=== PATIENT | female | born 1960 | race Caucasian/White ===

== ENCOUNTER → 2016-11-05 | Outpatient (CLI) | payer MEDICARE, OTHER ==
--- NOTE | 2016-11-07 09:27 | MM ---
Reason for exam: follow-up at short interval from prior study. Last mammogram was performed 7 months ago. History: Patient is postmenopausal. Family history of premenopausal breast cancer in mother. Benign MG pre op needle loc RT of the right breast, April 26, 2016. MG discontinued stereo core RT of the right breast, April 19, 2016. Benign excisional biopsy of the right breast. Physical Findings: Nurse did not find any significant physical abnormalities on exam. MG Diagnostic Mammo w CAD VICK Bilateral CC and MLO view(s) were taken. Prior study comparison: April 03, 2016, right breast MG work up mamm w CAD RT. March 28, 2016, bilateral MG screening mammo w CAD. April 21, 2014, bilateral MG screening mammo w CAD. The breast tissue is heterogeneously dense. This may lower the sensitivity of mammography. Post surgical changes in the right breast. No significant new findings when compared with previous films. These results were verbally communicated with the patient and result sheet given to the patient on 11/05/16. ASSESSMENT: Benign, BI-RAD 2 RECOMMENDATION: Routine screening mammogram of both breasts in 1 year.
== END | disposition home or self-care (01) ==
LOC: RADMAMWWP 13:37
PROVIDERS: ATTEND Surgery
DX: R92.8 Other abnormal and inconclusive findings on diagnostic imaging of breast (principal)

== ENCOUNTER → 2017-05-30 | Outpatient (CLI) | payer MEDICARE, OTHER ==
--- NOTE | 2017-05-31 06:24 | MR ---
MRI CERVICAL SPINE: CLINICAL HISTORY: Chronic cervical Neck pain per order. Headache with neck pain and spasms since 2008 causing pain or weakness into both arms per patient. TECHNIQUE: Multiplanar, multisequence imaging of the cervical spine is performed without with IV cont rast. COMPARISON: Prior MRI cervical spine November 04, 2012 FINDINGS: Sagittal images of the cervical spine show the craniocervical junction to appear within nor mal limits. The cervical and upper thoracic spinal cord is normal in course, caliber, and signal. Th ere is stable alignment with slight grade 1 retrolisthesis of C4 on C5 and C6 on C7. There is persist ent mild disc space narrowing C5-C6 and moderate disc space narrowing C6-C7 level. Small posterior di sc herniation C4-C5 through C6-C7 level are redemonstrated on sagittal images. The vertebral body he ights are normal. The bone marrow signal intensity is within normal limits. Mild multilevel anterior spurring mid to lower cervical spine is redemonstrated. Axial images show the C2-C3 and C3-C4 levels to remain within normal limits. Axial images at C4-C5 level show right paracentral disc protrusion effacing anterior thecal sac, with mild right-sided neural foraminal narrowing on axial image 30, left-sided neural foramen is patent. No significant change from prior. Axial images at C5-C6 level show more central disc protrusion effacing anterior thecal sac, bilateral neural foramina are patent. No significant change from prior. Axial images at C6-C7 level show right paracentral disc protrusion effacing anterolateral thecal sac, there is some marginal spurring causing moderate left-sided neural foraminal narrowing. Right-sided neural foramen is patent. No significant change from prior study is seen. Axial images at C7-T1 level are felt within normal limits. IMPRESSION: Multilevel degenerative changes in cervical spine as detailed above. No significant reyes e from prior MRI in 2012.
== END | disposition home or self-care (01) ==
LOC: RADMRIMAIN 18:39
PROVIDERS: ATTEND Internal Medicine
DX: M48.02 Spinal stenosis, cervical region (principal); M99.71 Connective tissue and disc stenosis of intervertebral foramina of cervical region; M50.221 Other cervical disc displacement at C4-C5 level; M47.812 Spondylosis without myelopathy or radiculopathy, cervical region
CPT/HCPCS: 72141

== ENCOUNTER → 2017-12-17 | Outpatient (CLI) | payer MEDICARE, OTHER ==
--- NOTE | 2017-12-24 10:28 | MM ---
Reason for exam: screening (asymptomatic). Last mammogram was performed 1 year and 1 month ago. History: Patient is postmenopausal. Family history of premenopausal breast cancer in mother at age 45. Benign MG pre op needle loc RT of the right breast, April 26, 2016. MG discontinued stereo core RT of the right breast, April 19, 2016. Benign excisional biopsy of the right breast. Physical Findings: A clinical breast exam by your physician is recommended on an annual basis and results should be correlated with mammographic findings. MG 3D Screening Mammo W/Cad Bilateral CC and MLO view(s) were taken. Prior study comparison: November 05, 2016, bilateral MG diagnostic mammo w CAD VICK. April 03, 2016, right breast MG work up mamm w CAD RT. The breast tissue is heterogeneously dense. This may lower the sensitivity of mammography. Finding: There are typically benign vascular calcifications in the upper quadrant of the left breast. There is no discrete abnormality. ASSESSMENT: Benign, BI-RAD 2 RECOMMENDATION: Routine screening mammogram of both breasts in 1 year.
== END | disposition home or self-care (01) ==
LOC: RADMAMWWP 11:32
PROVIDERS: ATTEND Internal Medicine
DX: Z12.31 Encounter for screening mammogram for malignant neoplasm of breast (principal)
CPT/HCPCS: 77063; 77067

== ENCOUNTER → 2019-04-21 | Outpatient (CLI) | payer MEDICARE, OTHER ==
--- NOTE | 2019-04-21 11:03 | MM ---
Reason for exam: screening (asymptomatic). Last mammogram was performed 1 year and 4 months ago. History: Patient is postmenopausal. Family history of premenopausal breast cancer in mother at age 45. Benign MG pre op needle loc RT of the right breast, April 26, 2016. MG discontinued stereo core RT of the right breast, April 19, 2016. Benign excisional biopsy of the right breast. Physical Findings: A clinical breast exam by your physician is recommended on an annual basis and results should be correlated with mammographic findings. MG 3D Screening Mammo W/Cad Bilateral CC and MLO view(s) were taken. Prior study comparison: December 17, 2017, bilateral MG 3d screening mammo w/cad. November 05, 2016, bilateral MG diagnostic mammo w CAD VICK. The breast tissue is heterogeneously dense. This may lower the sensitivity of mammography. Finding #1: Subtle architectural distortion in the posterior position of the right breast consistent with known excision changes. Finding #2: There are typically benign vascular calcifications in the left breast. There is no discrete abnormality. ASSESSMENT: Benign, BI-RAD 2 RECOMMENDATION: Routine screening mammogram of both breasts in 1 year. Manage on a clinical basis with regard to right pain.
== END | disposition home or self-care (01) ==
LOC: RADMAMWWP 09:19
PROVIDERS: ATTEND Internal Medicine
DX: Z12.31 Encounter for screening mammogram for malignant neoplasm of breast (principal)
CPT/HCPCS: 77063; 77067

== ENCOUNTER → 2019-10-20 | Outpatient (CLI) | payer MEDICARE, OTHER ==
[2019-10-20 15:04] LABS: Basophils # (A) 0.1 k/uL (0-0.2); Basophils % (A) 1 %; Eosinophils # (A) 0.4 k/uL (0-0.7); Eosinophils % (A) 5 %; HCT 42.8 % (34.0-46.0); Hypochromasia Slight; Lymphocytes # (A) 2.7 k/uL (1.0-4.8); Lymphocytes % (A) 32 %; MCH 27.5 pg (25.0-35.0); MCHC 30.4 g/dL (31.0-37.0); MCV 90.6 fL (80.0-100.0); Mean Platelet Volume 7.5; Monocytes # (A) 0.5 k/uL (0-1.0); Monocytes % (A) 5 %; Neutrophils # (A) 4.6 k/uL (1.3-7.7); Neutrophils % (A) 55 %; Platelet Count 229 k/uL (150-450); RBC 4.73 m/uL (3.80-5.40); RDW 12.5 % (11.5-15.5); WBC 8.4 k/uL (3.8-10.6)
[2019-10-20 15:11] LABS: Appearance,Urine Clear (Clear); Bilirubin,Urine Negative (Negative); Blood,Urine Negative (Negative); Color,Urine Light Yellow; Glucose,Urine (UA) Negative (Negative); Ketones,Urine Negative (Negative); Leukocyte Esterase,Urine Moderate (Negative); Mucus,Urine Rare /hpf; Nitrite,Urine Negative (Negative); PH, Urine 5.5 (5.0-8.0); Protein,Urine Negative (Negative); RBC,Urine 1 /hpf (0-5); Specific Gravity,Urine 1.009 (1.001-1.035); Squamous Epithelial Cell,Urine 1 /hpf (0-4); Urobilinogen,Urine <2.0 mg/dL (<2.0); WBC,Urine 1 /hpf (0-5)
[2019-10-21 03:08] LABS: African American GFR (CKD) 108.4 (60.0-200.0); Anion Gap 9.8 mmol/L (4.00-12.00); BUN/Creat Ratio 15.71 Ratio (12.00-20.00); Calcium 9.4 mg/dL (8.7-10.3); Carbon Dioxide 27.2 mmol/L (21.6-31.8); Non-African American GFR(CKD) 93.5 (60.0-200.0); Potassium 3.7 mmol/L (3.5-5.5)
== END | disposition home or self-care (01) ==
LOC: LABWHC1 14:28
PROVIDERS: ATTEND Orthopaedic Surgery
DX: Z01.818 Encounter for other preprocedural examination (principal); Z01.812 Encounter for preprocedural laboratory examination; M17.11 Unilateral primary osteoarthritis, right knee
CPT/HCPCS: 36415; 80048; 81001; 85025; 87070; 93005

== ENCOUNTER 2019-10-26 11:11 | Day surgery (SDC) | payer MEDICARE, OTHER ==
[2019-10-22 14:58] VITALS: BMI 25.3
--- NOTE | 2019-10-25 15:39 | HP ---
HISTORY AND PHYSICAL Surgery is 10/26/2019 Helen Mahmood is a 59-year-old patient seen with symptomatic right knee osteoarthritis. We discussed options. She elected to proceed with right total knee arthroplasty. Consent regarding the procedure was obtained. Medical clearance was provided by Dr. Graham. PAST MEDICAL HISTORY: Hypertension, chronic opioid use. PAST SURGICAL HISTORY: Right knee arthroscopy. MEDICATIONS: Lisinopril, Saxis, Xanax, ibuprofen. ALLERGIES: None. SOCIAL HISTORY: She denies current tobacco use. PHYSICAL EXAMINATION: Evaluation right knee: Range of motion is -3/4-110. There is a mild effusion present. Tenderness medial joint line. Crepitus along the medial patellofemoral compartments range of motion. Pain with patellofemoral compression. Ligaments stable. Hip rotation without pain. Distal neurovascular exam is intact. RADIOGRAPHS: Radiographs of the right knee reveal severe osteoarthritic changes. IMPRESSION: 1. Right knee osteoarthritis. 2. Hypertension. 3. Chronic opioid use. PLAN: Right total knee arthroplasty. MMODL / IJN: [id number] /
[~2019-10-26 11:11] MED LIST: ACETAMINOPHEN TAB 500 MG TAB PO ONE; DEXAMETHASONE SOD PHOSPHATE 10 MG/ML 1 ML VIAL IV ONE; HYDROmorphone 0.5 MG/0.5 ML SYRINGE IVP PRN; LACTATED RINGERS 1,000 ML IV SCH; MELOXICAM 7.5 MG TAB PO ONE; MIDAZOLAM 2 MG/2 ML VIAL IV PRN; ONDANSETRON 4 MG/2 ML VIAL IVP ONE; ROPIVACAINE 246.25 MG, EPINEPHrine 0.5 MG, KETOROLAC 30 MG, cloNIDine HCL/PF 80 MCG, WA... MISCELLANE ONE; TRANEXAMIC ACID 1,000 MG in SODIUM CHLORIDE 0.9% 100 ML IVPB ONE
[2019-10-26] MEDS ORDERED: ACETAMINOPHEN TAB 500 MG TAB ONE (11:22)
[2019-10-26] MEDS ORDERED: ROPIVACAINE 0.2%-NS ON-Q PUMP 1,090 MG, EMPTY PAIN BALL 1 EACH MISCELLANE PRN (12:24)
--- NOTE | 2019-10-26 12:26 | P.ANPRN ---
Procedure Note - Anesthesia - Nerve Block Performed Right Adductor Canal Infusion Time Out Performed: Yes Date of Procedure: 10/26/19 Procedure Start Time: 11:59 Procedure Stop Time: 12:14 Location of Patient: PreOp Indication: Acute Post-Operative Pain, Requested by Surgeon Sedation Type: Sedate with meaningful contact maintained Preparation: Sterile Prep, Sterile Dressing Position: Supine Catheter: Indwelling Needle Types: Pajunk Needle Gauge: 21 Ultrasound used to visualize needle placement: Yes Ultrasound used to observe medication spread: Yes Resistance on Injection: Normal Image Stored and Saved: Yes Events: Uneventful and Well Tolerated (ropi .5% 20cc plus dexamethasone 4mg)
[2019-10-26] MEDS ORDERED: fentaNYL (PF) 50 MCG/ML 2 ML AMP ONE (12:40)
[2019-10-26] MEDS ORDERED: PROPOFOL 10 MG/ML 20 ML VIAL IV ONE (12:40)
[2019-10-26] MEDS ORDERED: MIDAZOLAM 2 MG/2 ML VIAL ONE (12:40)
[2019-10-26] MEDS ORDERED: TRANEXAMIC ACID 1,000 MG/10 ML VIAL ONE (12:40)
[2019-10-26] MEDS ORDERED: SODIUM CHLORIDE 0.9% 100 ML BAG ONE (12:40)
[2019-10-26] MEDS ORDERED: ePHEDrine SULFATE/0.9% NACL/PF 50 MG/5 ML SYRINGE IV ONE (12:40)
[2019-10-26] MEDS ORDERED: WATER FOR INJECTION, STERILE 10 ML VIAL IV ONE (12:40)
[2019-10-26 12:42] LABS: Prothrombin Time 10.6 sec (9.0-12.0)
[2019-10-26] MEDS ORDERED: ceFAZolin 3,000 MG in SODIUM CHLORIDE 0.9% IRRIGATIO 3,000 ML IRRIGATION ONE (13:15)
[2019-10-26] MEDS ORDERED: HYDROmorphone 1 MG/ML 1 ML SYRINGE IVP PRN (14:20)
[2019-10-26] MEDS ORDERED: ONDANSETRON 4 MG/2 ML VIAL IVP PRN (14:20)
[2019-10-26] MEDS ORDERED: NALOXONE 0.4 MG/ML 1 ML VIAL IV PRN (14:20)
[2019-10-26] MEDS ORDERED: HYDROmorphone 0.5 MG/0.5 ML SYRINGE IVP PRN ×2 (14:20)
[2019-10-26] MEDS ORDERED: HYDROcodone/APAP 7.5-325MG 1 EACH TAB PO PRN (14:20)
[2019-10-26] MEDS ORDERED: HYDROcodone/APAP 5-325MG 1 EACH TAB PO PRN (14:20)
--- NOTE | 2019-10-26 14:20 | P.OP ---
Date of Procedure: 10/26/19 Preoperative Diagnosis: Right knee osteoarthritis Postoperative Diagnosis: Right knee osteoarthritis Procedure(s) Performed: Right total knee arthroplasty Implants: 1. Depuy attune size 4 right cruciate-retaining cemented femur 2. Depuy attune size 3 fixed bearing cemented tibial baseplate 3. Depuy attune size 4 fixed bearing cruciate retaining a millimeter polyethylene tibial insert 4. Depuy attune 35 mm all polyethylene cemented patella Anesthesia: regional (Adductor canal catheter), local, spinal Surgeon: Salomon Hardin Adjunct Nursing Faculty #1: Juan Alberto Smith Estimated Blood Loss (ml): 45 Pathology: other (Bone) Condition: stable Disposition: PACU Indications for Procedure: 59-year-old patient seen with symptomatic right knee osteoarthritis. After treatment options were discussed with her, she elected to proceed with total knee arthroplasty. Operative Findings: See description of procedure Description of Procedure: Patient was taken to the operative suite after having an adductor canal catheter placed by the department of anesthesia. Patient underwent a spinal anesthetic by the department of anesthesia. Patient was given preoperative IV intake antibiotics and TXA. A well-padded tourniquet was placed about the right lower extremity. The lower extremity was then prepped and draped in the normal sterile orthopedic fashion. The extremity was elevated, a tourniquet was insufflated to 300. A standard anterior incision was made sharply through skin. Dissection was taken down through the subcutaneous soft tissues down to the extensor mechanism. A medial arthrotomy was performed, patella was everted and knee was flexed. There was advanced osteoarthritis noted. I introduced my distal intramedullary femoral drill. I then introduced the distal femoral cutting jig. Johnathon PETE secured the cutting jig with 2 pins. I held retractors in position while Johnathon PETE performed the distal femoral resection through the guide area we now removed her distal femoral cutting guide. We now placed our 4-in-1 femoral cutting block and positioned and it was secured with 2 pins by Johnathon PETE while I held the block in position. The distal femoral finishing was now completed. A proximal tibial cutting guide was positioned. I held the guide in the appropriate position with both hands well Johnathon PETE inserted stabilizing pins into the guide. Proximal tibial cut was made. We now placed a trial femoral component into position, along with an appropriate size tibial tray and insert. We now took the knee through range of motion and had full extension good flexion and good overall soft tissue balance noted. The patella was everted and stabilized with 2 towel clips held by Johnathon PETE while I performed a flush with patellar quad tendon utilizing a fresh sawblade. We templated the patella, appropriate drill holes were made. An appropriate trial patella was positioned, knee was taken through full range of motion with the patella tracking very nicely. The trial patella was removed. Drill holes were made through the femoral component. All trial components were removed after marking off the appropriate rotation of the tibia. Retractors were now positioned along the proximal tibia. An appropriate keel punch was made with the appropriate size tibial guide by myself on Johnathon PETE assisted by holding retractors. At this point appropriate size implants were chosen and opened. The joint was irrigated copiously with pulse lavage mechanical irrigation. The posterior capsule was infiltrated with local analgesic. The wound was irrigated with pulse lavage mechanical irrigation. We mixed antibiotic methylmethacrylate. We placed the knee into flexion. We placed multiple retractors assisted by Johnathon PETE to expose the proximal tibia. Once the methyl methacrylate was ready, the tibial component was cemented into place removing any excess methylmethacrylate form by both myself and Johnathon PETE. The femoral component was cemented into place removing the removing any excess methylmethacrylate performed by both myself and Johnathon PETE. We then inserted the appropriate size polyethylene tibial insert. We made sure that it was locked into position. We took the knee into full extension, and then back in a flexion making sure we had removed any excess methylmethacrylate. The patellar component was then cemented down and secured with clamp. Excess methylmethacrylate removed. We kept the knee in full extension, patellar clamp in position until methylmethacrylate had hardened. Once it had hardened the patellar clamp was removed. The knee was taken through full range of motion. The patella tracked nicely. There was good soft tissue balancing. The tourniquet was now released. Additional hemostasis was achieved via electrocautery. A second gram of TXA was given. The wound again was irrigated with pulse lavage mechanical irrigation. The superficial soft tissues were infiltrated local analgesic. The extensor mechanism was repaired with Vicryl. We checked the repair with range of motion and it was stable. The subcutaneous soft tissues were repaired with Vicryl in layers. The skin was approximated with pernio/Dermabond. Sterile dressings were applied followed by loose web roll and Philip bandage. The patient was transferred to a bed, and taken to recovery in stable and satisfactory condition. Johnathon PETE assisted with this complex procedure.
[2019-10-26] MEDS ORDERED: LACTATED RINGERS 1,000 ML IV ONE ×2 (14:28→18:00)
--- NOTE | 2019-10-26 15:09 | XR ---
EXAMINATION TYPE: XR knee limited RT DATE OF EXAM: 10/26/2019 CLINICAL HISTORY: Right knee pain and arthritis status post total knee replacement. TECHNIQUE: Portable AP and crosstable lateral views of the right knee are obtained immediately posto peratively. COMPARISON: Outside right knee x-ray July 01, 2019. FINDINGS: Metallic hardware from total right knee arthroplasty is seen and appears satisfactory in a lignment and position. There is evidence of recent surgery with diffuse subcutaneous gas and soft ti ssue swelling noted. IMPRESSION: METALLIC HARDWARE FROM TOTAL RIGHT KNEE ARTHROPLASTY IS SATISFACTORY IN ALIGNMENT.
[2019-10-26] MEDS ORDERED: methocarbamoL 750 MG TAB PO PRN (18:50)
[2019-10-26] MEDS ORDERED: ALPRAZolam 0.25 MG TAB PO PRN (18:50)
[2019-10-26] MEDS: LACTATED RINGERS 1,000 ML IV SCH ×2 (19:24→23:34)
[2019-10-26] MEDS: traMADol 50 MG TAB PO SCH ×2 (19:41→22:19)
[2019-10-26] MEDS: CIPROFLOXACIN HCL 500 MG TAB PO SCH (20:52)
[2019-10-26] MEDS ORDERED: SENNOSIDES-DOCUSATE SODIUM 1 EACH TAB PO SCH (21:00)
[2019-10-26] MEDS ORDERED: ENOXAPARIN 30 MG/0.3 ML SYRINGE SQ SCH (21:00)
[2019-10-27 00:57] LABS: Bacteria,Urine Rare /hpf; Mucus,Urine Rare /hpf; RBC,Urine 1 /hpf (0-5); Squamous Epithelial Cell,Urine 2 /hpf (0-4); WBC,Urine 14 /hpf (0-5)
[2019-10-27 00:58] LABS: Appearance,Urine Slightly Cloudy (Clear); Bilirubin,Urine Negative (Negative); Blood,Urine Negative (Negative); Color,Urine Yellow; Glucose,Urine (UA) Negative (Negative); Ketones,Urine Negative (Negative); Leukocyte Esterase,Urine Large (Negative); Nitrite,Urine Negative (Negative); Protein,Urine Negative (Negative); Urobilinogen,Urine <2.0 mg/dL (<2.0)
--- NOTE | 2019-10-27 00:58 | CONS ---
CONSULTATION DATE OF SERVICE: 10/26/2019 REASON FOR CONSULTATION: Advice regarding hypertension, GERD, and multiple medical issues requested by Dr. Hardin. HISTORY OF PRESENT ILLNESS: This 59-year-old woman with a past medical history of GERD, hypertension, DJD, history of neck injury, history of breast surgery, history of anxiety, being followed by Dr. Graham in the outpatient setting underwent right total knee arthroplasty for severe DJD by Dr. Hardin. Patient tolerated the procedure well. There is no history of fever or rigors. No history of chest pain, palpitations, hematochezia or melena at this time. PAST MEDICAL HISTORY: GERD, hypertension, DJD, history of neck injury, history of breast surgery. MEDICATIONS: Medications are, the home medications are: 1. Vitamin D3, 2000 daily. 2. Cipro 500 mg p.o. b.i.d. 3. Xanax 0.25 b.i.d. p.r.n. 4. Zestril 2.5 mg q.a.m. 5. Motrin 800 mg q.8 p.r.n. 6. [place] 7.5 mg q.i.d. p.r.n. 7. Robaxin 750 mg t.i.d. p.r.n. ALLERGIES: None. FAMILY HISTORY: History of cancer in the family. SOCIAL HISTORY: History of smoking, continued ongoing. No history of alcohol intake. REVIEW OF SYSTEMS: ENT: No diminished hearing or diminished vision. CARDIOVASCULAR SYSTEM: No angina. RESPIRATORY SYSTEM: No cough or hemoptysis. GI: No nausea. : No dysuria. NERVOUS SYSTEM: No numbness or weakness. ALLERGY/IMMUNOLOGY: No asthma or hay fever. MUSCULOSKELETAL: As mentioned earlier. HEMATOLOGY: No history of anemia. ENDOCRINE: No history of diabetes mellitus or hypothyroidism. CONSTITUTIONAL: As mentioned earlier. DERMATOLOGY: Negative. RHEUMATOLOGY: Negative. PSYCHIATRY: As mentioned earlier. PHYSICAL EXAMINATION: The patient is alert and oriented x3. Pulse 95, blood pressure 134/66, respiration 14, temperature 97.7, pulse ox 97% on room air. HEENT: Conjunctivae normal. Oral mucosa moist. NECK: No jugular venous distention. No carotid bruit. No lymph node enlargement. CARDIOVASCULAR: S1, S2 muffled. No S3, S4. RESPIRATORY: Breath sounds diminished in the bases. No rhonchi. No crackles. ABDOMEN: Soft. LEGS: Status post surgery. NERVOUS SYSTEM: Higher function as mentioned earlier. Moves all 4 limbs. No focal motor or sensory deficits. LYMPHATICS: No lymphadenopathy of the neck, axillae or groin. SKIN: No ulcer, rash or bleeding. JOINTS: No active deforming arthropathy. LABS: The preop labs CBC within normal limits. Coags within normal limits. Chemistries within normal limits also. ASSESSMENT: 1. Status post right total knee joint arthroplasty. 2. Hypertension. 3. History of gastroesophageal reflux disease. 4. History of degenerative joint disease. 5. History of migraines. 6. Chronic neck and back pain. 7. History of old hematoma of the left gluteal region. 8. Anxiety. 9. History of nicotine dependence occasional. 10.FULL CODE. RECOMMENDATIONS AND DISCUSSION: This 59-year-old woman presented with multiple complex medical issues, we will monitor the patient closely, continue the current medications, continue symptomatic treatment, DVT prophylaxis, incentive spirometry. Resume the home medications. We will follow the patient closely with you. Patient may be asked to follow with Dr. Graham closely after discharge. Thank you Dr. Hardin for letting us participate in the care of this patient. MMODL / IJN: [id number] /
[2019-10-27] MEDS ORDERED: ENOXAPARIN 30 MG/0.3 ML SYRINGE SQ SCH (04:00)
[2019-10-27 06:38] LABS: Basophils % (A) 0 %; Eosinophils % (A) 0 %; HCT 33.2 % (34.0-46.0); HGB 10.3 gm/dL (11.4-16.0); Hypochromasia Slight; Lymphocytes # (A) 1.2 k/uL (1.0-4.8); Lymphocytes % (A) 8 %; MCH 28.1 pg (25.0-35.0); MCV 90.5 fL (80.0-100.0); Mean Platelet Volume 8.2; Monocytes # (A) 0.8 k/uL (0-1.0); Monocytes % (A) 5 %; Neutrophils # (A) 13.3 k/uL (1.3-7.7); Neutrophils % (A) 86 %; Platelet Count 194 k/uL (150-450); RBC 3.66 m/uL (3.80-5.40); RDW 12.7 % (11.5-15.5); WBC 15.5 k/uL (3.8-10.6)
--- NOTE | 2019-10-27 06:52 | P.PN ---
Progress Note - Text Progress Note Date: 10/27/19 The patient is doing well status post total knee replacement. Pain is well con trolled by a combination of local anesthetic infusion through the adductor canal catheter and oral analgesics. There are no signs of infection around the catheter skin entry site. The local anesthetic infusion will be continued as per protocol.
[2019-10-27 06:59] VITALS: BP 110/68; PULSE 65; RESP 18; TEMP 97.9
[2019-10-27] MEDS: LACTATED RINGERS 1,000 ML IV SCH (07:45)
[2019-10-27] MEDS: CIPROFLOXACIN HCL 500 MG TAB PO SCH (08:18)
[2019-10-27] MEDS: traMADol 50 MG TAB PO SCH (08:24)
[2019-10-27] MEDS ORDERED: MELOXICAM 7.5 MG TAB PO SCH (09:00)
[2019-10-27] MEDS ORDERED: CHOLECALCIFEROL 1,000 UNIT TAB PO SCH (09:00)
--- NOTE | 2019-10-27 10:13 | P.PN ---
Subjective Progress Note Date: 10/27/19 Principal diagnosis: Status post right total knee arthroplasty Patient evaluated at bedside, she is doing very well. She's ambulated well with therapy. She denies any chest pain or shortness of breath at this time. Objective - Vital Signs Vital signs: Vital Signs Temp 97.9 F 10/27/19 06:58 Pulse 65 10/27/19 06:58 Resp 18 10/27/19 06:58 BP 110/68 10/27/19 06:58 Pulse Ox 100 10/27/19 06:58 Intake & Output 10/26/19 10/27/19 10/27/19 18:59 06:59 18:59 Intake Total 1851 118 296 Output Total 45 400 Balance 1806 -282 296 Weight 60.1 kg 60.1 kg Intake: IV 1851 Oral 118 296 Output: Urine 400 Estimated Blood Loss 45 Other: Voiding Method Toilet Toilet # Voids 1 1 - Exam Right lower extremity: Incision is clean, dry, and intact. The exofin fusion tape is in good condition. There is minimal soft tissue swelling and ecchymosis surrounding the medial and lateral aspects of the incision. Calf is soft, no tenderness with palpation. Plantar flexion, dorsiflexion, EHL, FHL are intact. Sensory exam to light touch throughout the extremity is intact, dorsal pedis pulses 2+. - Labs CBC & Chem 7: 10/27/19 06:14 Labs: Abnormal Lab Results - Last 24 Hours (Table) 10/27/19 10/27/19 Range/Units 00:36 06:14 WBC 15.5 H (3.8-10.6) k/uL RBC 3.66 L (3.80-5.40) m/uL Hgb 10.3 L (11.4-16.0) gm/dL Hct 33.2 L (34.0-46.0) % Neutrophils # 13.3 H (1.3-7.7) k/uL Urine Appearance Slightly Cloudy H (Clear) Urine WBC 14 H (0-5) /hpf Urine Bacteria Rare H (None) /hpf Urine Mucus Rare H (None) /hpf Assessment and Plan Assessment: Status post right total knee arthroplasty Plan: Pain control, patient takes pain medication chronically, she will resume this GI and DVT prophylaxis, aspirin 81 mg twice a day Wound care instructions discussed Home physical therapy and nursing after discharge Medical management Discharge home today Time with Patient: Less than 30
--- NOTE | 2019-10-27 10:16 | P.DS ---
Providers Date of admission: 10/26/2019 Expected date of discharge: 10/27/19 Attending physician: Salomon Hardin Consults: 10/26/19 14:20 Consult Physician Routine Consulting Provider: Pushpa Graham Consult Reason/Comments: Medical management Do you want consulting provider notified?: Yes Primary care physician: [facility] Course: Date of admission: 10/26/2019 Date of discharge: 10/27/2019 Admission diagnosis: Status post right total knee arthroplasty Discharge diagnosis: Same Attending physician: Dr. Hardin Surgical procedures: Right total knee arthroplasty Brief history: Patient is a 59-year-old female with a history of progressive primary right knee osteoarthritis. At this point patient has failed conservative treatment measures and has opted to proceed with a elective right total knee arthroplasty. Hospital course: Details of patient's surgery can be found in operative report. Patient tolerated the procedure well and was subsequently transported to orthopedic floor. Patient's orthopeidc and medical care was provided daily. Patient had daily laboratory tests performed for evaluation of overall blood counts. Patient had daily physical therapy to include strengthening range of motion as well as education with walker ambulation. Patient had daily CPM usage as part of their physical therapy program. Patient was treated with Lovenox for their postoperative DVT prophylaxis during their inpatient stay. Patient was noted to have a relatively uneventful postoperative course. Patient reported satisfactory pain control with oral pain medications by postoperative day 0. Patient showed satisfactory progress with physical therapy. Patient moved steadily through the program and had no difficulty meeting the goals by postoper ative day 1. Given patient's otherwise satisfactory course and having met physical therapy goals, plan is to discharge patient home on postoperative day 1. Discharge condition/disposition: Patient will be discharged home in stable condition. Discharge medications: Instructions are given on resumption of patient's normal daily medications per primary care recommendation, in addition patient will be prescribed Colace 100 mg, aspirin 81 mg. Discharge instructions: 1. Wound care and infection precautions, keep incision dry and covered while showering, no lotions, creams, moisturizers. No soaking, tubs, pools, hottubs. Do not scrub over the incision. 2. Weight-bear [as tolerated] with walker / cane until follow-up. 3. Ice and elevate when necessary. Do not exceed 20 minutes per hour with ice pack. 4. Utilize compression sleeve until seen at first follow up appointment. 5. Visiting nursing care. 6. Home physical therapy [including home CPM]. 7. Pain meds and anticoagulants per prescription. 8. Pain medication has potential to cause constipation. Increase oral fluid and fiber intake. Contact primary care provider if you have not had a bowel movement within 48 hours after discharge 9. No anti-inflammatory medication until discussed at first post operative visit, this including Motrin, Aleve, Mobic, Diclofenac. 10. Follow up in office at 2 weeks postop with Johnathon Smith PA-C 11. Follow up with your primary care doctor 7-10 days after discharge. 12. Contact [facility] with any questions, . Procedures: Right total knee arthroplasty Patient Condition at Discharge: Good Plan - Discharge Summary Discharge Rx Participant: No New Discharge Prescriptions: New Aspirin [Adult Low Dose Aspirin EC] 81 mg PO BID #60 tablet. Docusate [Colace] 100 mg PO DAILY #30 capsule No Action Lisinopril [Zestril] 2.5 mg PO QAM Ibuprofen [Motrin] 800 mg PO Q8H PRN PRN Reason: Pain ALPRAZolam [Xanax] 0.25 mg PO BID PRN PRN Reason: Anxiety Ciprofloxacin HCl [Cipro] 500 mg PO Q12HR HYDROcodone/APAP 7.5-325MG [[place] 7.5] 1 each PO QID PRN PRN Reason: Pain Methocarbamol [Robaxin] 750 mg PO TID PRN PRN Reason: Pain Cholecalciferol (Vitamin D3) [Vitamin D3] 2,000 unit PO DAILY Discharge Medication List ALPRAZolam [Xanax] 0.25 mg PO BID PRN 04/25/16 [History] Ibuprofen [Motrin] 800 mg PO Q8H PRN 04/25/16 [History] Lisinopril [Zestril] 2.5 mg PO QAM 04/25/16 [History] Cholecalciferol (Vitamin D3) [Vitamin D3] 2,000 unit PO DAILY 10/22/19 [History] Ciprofloxacin HCl [Cipro] 500 mg PO Q12HR 10/22/19 [History] HYDROcodone/APAP 7.5-325MG [[place] 7.5] 1 each PO QID PRN 10/22/19 [History] Methocarbamol [Robaxin] 750 mg PO TID PRN 10/22/19 [History] Aspirin [Adult Low Dose Aspirin EC] 81 mg PO BID #60 tablet. 10/27/19 [Rx] Docusate [Colace] 100 mg PO DAILY #30 capsule 10/27/19 [Rx] Follow up Appointment(s)/Referral(s): Pushpa Graham MD [Primary Care Provider] - 1 Week (office not answering. Please call to make appointment) Juan Alberto Smith PAC [PHYSICIAN [employer]IE[employer]] - 11/13/19 1:30 pm [facility] Visiting Nurse, [NON-STAFF] - 1-2 Days Patient Instructions/Handouts: *Surgery [facility] - On-Q Pain Pump Discharge Instructions, Precautions after Total Joint Replacement Surgery (DC), Knee Replacement (DC) Activity/Diet/Wound Care/Special Instructions: [facility] can be contacted at [phone] when you arrive at home to deliver your CPM. Orthopedic Discharge Instructions: 1. Wound care and infection precautions, keep incision dry and covered while showering, no lotions, creams, moisturizers. No soaking, pools, hot tubs. Do not scrub over incision. 2. Weight-bear as tolerated with walker / cane until follow-up. 3. Ice and elevate when necessary. Do not exceed 20 minutes per hour with ice pack. 4. Utilize compression sleeve until seen at first follow up appointment. 5. Pain meds and anticoagulants per prescription. 6. Pain medication has potential to cause constipation. Increase oral fluid and fiber intake. Contact primary care provider if you have not had a bowel movement within 48 hours after discharge. 7. No anti-inflammatory medication until discussed at first post operative visit, this including Motrin, Aleve, Mobic, Diclofenac 8. Follow up in office at 2 weeks postop with Johnathon Smith PA-C 9. Follow up with your primary care doctor 7-10 days after discharge. 10. Contact [facility] with any questions, . Discharge Disposition: HOME WITH HOME HEALTH SERVICES
--- NOTE | 2019-10-27 23:17 | PN ---
PROGRESS NOTE DATE OF SERVICE: 10/27/2019 This 59-year-old woman who was admitted after right total knee joint arthroplasty is being closely monitored. No chest pain. No palpitations. No fever. PHYSICAL EXAMINATION: Alert and oriented x3. Pulse 62, blood pressure 110/60, respiration 18, temperature 97.9, pulse ox 100% on room air. HEENT: Conjunctivae normal. NECK: No jugular venous distention. CARDIOVASCULAR SYSTEM: S1, S2 muffled. RESPIRATORY SYSTEM: Breath sounds diminished at the bases. A few rhonchi. No crackles. ABDOMEN: Soft, non-tender. NERVOUS SYSTEM: No focal deficit. LABS: WBC 15.4, hemoglobin 10.3. ASSESSMENT: 1. Status post right total knee arthroplasty. 2. Hypertension. 3. History of gastroesophageal reflux disease. 4. Degenerative joint disease. 5. History of migraine. 6. History of chronic neck and back pain. 7. History of old hematoma in the left gluteal region. 8. Anxiety. 9. History of nicotine dependence occasionally. 10.FULL CODE. RECOMMENDATIONS AND DISCUSSION: I recommend to continue current medications, continue with the monitoring, symptomatic treatment. Resume the home medications. Rest of the recommendations per Orthopedic Surgery. Further recommendations to follow. MMODL / IJN: [id number] /
== END 2019-10-27 11:00 | disposition home health service (06) ==
LOC: OR 11:11 → 6PED 14:12 → OR 10-27 11:00
PROVIDERS: ATTEND Orthopaedic Surgery
DX: M17.11 Unilateral primary osteoarthritis, right knee (principal); I10 Essential (primary) hypertension; K21.9 Gastro-esophageal reflux disease without esophagitis; G89.29 Other chronic pain; M54.2 Cervicalgia; M19.90 Unspecified osteoarthritis, unspecified site; F41.9 Anxiety disorder, unspecified; F17.200 Nicotine dependence, unspecified, uncomplicated; G43.909 Migraine, unspecified, not intractable, without status migrainosus; Z79.891 Long term (current) use of opiate analgesic; Z98.890 Other specified postprocedural states; Z79.1 Long term (current) use of non-steroidal anti-inflammatories (NSAID); Z79.899 Other long term (current) drug therapy
CPT/HCPCS: 97110; 97161; 64448; 76942; 85025; 85610; 81001; 88300; 73560; 27447; C1776; C1713; J2250; J1100; J0690 ×3; J2405; J1650; J2795

== ENCOUNTER → 2019-11-03 | Outpatient (CLI) | payer MEDICARE, OTHER ==
--- NOTE | 2019-11-03 11:03 | US ---
EXAMINATION TYPE: US venous doppler duplex LE RT DATE OF EXAM: 11/03/2019 10:41 AM COMPARISON: NONE CLINICAL HISTORY: G89.28 Post op pain. TKR x 8 days ago. Pain/cramping in leg. Swelling. No blood thinners. SIDE PERFORMED: Right TECHNIQUE: The lower extremity deep venous system is examined utilizing real time linear array sonog beena with graded compression, doppler sonography and color-flow sonography. VESSELS IMAGED: External Iliac Vein (EIV) Common Femoral Vein Deep Femoral Vein Greater Saphenous Vein * Femoral Vein Popliteal Vein Small Saphenous Vein * Proximal Calf Veins (* superficial vessels) Right Leg: Negative for DVT IMPRESSION: No evidence for DVT.
== END | disposition home or self-care (01) ==
LOC: RADUSWWP 10:22
PROVIDERS: ATTEND Internal Medicine
DX: G89.28 Other chronic postprocedural pain (principal); R22.41 Localized swelling, mass and lump, right lower limb; M79.661 Pain in right lower leg

== ENCOUNTER → 2020-05-25 | Outpatient (CLI) | payer MEDICARE, OTHER ==
--- NOTE | 2020-05-30 08:15 | MM ---
Reason for exam: screening (asymptomatic). Last mammogram was performed 1 year and 1 month ago. History: Patient is postmenopausal. Family history of premenopausal breast cancer in mother at age 45. Benign MG pre op needle loc RT of the right breast, April 26, 2016. MG discontinued stereo core RT of the right breast, April 19, 2016. Benign excisional biopsy of the right breast. Took hormonal contraceptives for 10 years. Physical Findings: A clinical breast exam by your physician is recommended on an annual basis and results should be correlated with mammographic findings. MG 3D Screening Mammo W/Cad Bilateral CC and MLO view(s) were taken. Prior study comparison: April 21, 2019, bilateral MG 3d screening mammo w/cad. December 17, 2017, bilateral MG 3d screening mammo w/cad. The breast tissue is heterogeneously dense. This may lower the sensitivity of mammography. There is chronic nodularity in the right upper outer quadrant and in the left breast medillay and centrally on the CC view. Post surgical change right breast. No significant changes when compared with prior studies. ASSESSMENT: Benign, BI-RAD 2 RECOMMENDATION: Routine screening mammogram of both breasts in 1 year.
== END | disposition home or self-care (01) ==
LOC: RADMAMWWP 13:12
PROVIDERS: ATTEND Internal Medicine
DX: Z12.31 Encounter for screening mammogram for malignant neoplasm of breast (principal)
CPT/HCPCS: 77063; 77067

== ENCOUNTER → 2020-06-04 | Outpatient (CLI) | payer MEDICARE, OTHER ==
--- NOTE | 2020-06-04 17:20 | MR ---
EXAMINATION TYPE: MR cervical spine wo con DATE OF EXAM: 06/04/2020 COMPARISON: 05/30/2017 HISTORY: Neck pain into jesus arms Multiplanar multiecho imaging of the cervical spine was performed without contrast. Cervical vertebra have normal alignment. There is mild posterior disc herniations at C4-5 and C5-6 an d C6-7. Spinal canal measures 7.5 mm at C4-5 and 8 mm at C6-7. The canal measures 8.5 mm at C5-6. The cervical spinal cord has fairly normal signal pattern. There is no edema. Brainstem is intact. There is no cervical spine compression fracture. I see no bony destructive process. There is minor spurrin g in the facet joints of the cervical spine. There is no evidence of cervical paraspinal mass. IMPRESSION: Multilevel posterior cervical disc herniation as above. Disc herniations appears slightly increased c ompared to old exam. No significant spinal stenosis.
== END | disposition home or self-care (01) ==
LOC: RADMRIMAIN 14:45
PROVIDERS: ATTEND Internal Medicine
DX: M50.221 Other cervical disc displacement at C4-C5 level (principal)
CPT/HCPCS: 72141